=== PATIENT | female | born 1985 | race African-American/Black ===

== ENCOUNTER 2018-03-21 15:04 | Emergency (ER) | payer MEDICAID ==
[~2018-03-21] VITALS: Ht 157.5 cm; Wt 105.0 kg
[2018-03-21] MEDS ORDERED: IBUPROFEN 600MG TABLET PO ONE (18:30)
[2018-03-21 19:46] VITALS: BP 136/72
== END 2018-03-21 19:46 | disposition home or self-care (01) ==
LOC: ER 15:04
DX: M25.561 Pain in right knee (principal); Z98.890 Other specified postprocedural states
CPT/HCPCS: 73562; 99283